=== PATIENT | female | born 1995 | race African-American/Black ===

== ENCOUNTER 2016-11-13 00:33 | Emergency (ER) | payer MEDICAID ==
[~2016-11-13] VITALS: Ht 152.4 cm; Wt 65.9 kg
[2016-11-13 00:36] VITALS: BP 132/65; PULSE 110; RESP 36; TEMP 98.4; O2SAT 98
[2016-11-13] MEDS ORDERED: SODIUM CHLORIDE 0.9% FLUSH 5 ML FLUSH IVF PRN (00:45)
[2016-11-13] MEDS ORDERED: SODIUM CHLOR 0.9% 1000 ML INJ 1,000 ML IV ONE (00:45)
[2016-11-13] MEDS ORDERED: LORazepam 2 MG/ML VIAL IVP ONE (00:45)
--- NOTE | 2016-11-13 01:00 | PD ---
HPI Chief Complaint: Alcohol/Drug Intoxication Time Seen by Provider: 00:45 Travel History International Travel<30 days: No Contact w/Intl Traveler<30days: No Traveled to known affect area: No History of Present Illness HPI 21-year-old female with history of no significant past medical issues, presents to the ER sent in by mom because she is behaving abnormally, mom states that she had taken marijuana and Flacca. She is fairly agitated, and has spastic movements of the arms and legs in the ER. She is awake, alert, and able to answer questions. She states that she took Tylenol and denies taking drugs. She states that she has not been able to sleep and 24 hours. Modifying Factors: None Associated Signs & Symptoms: Possible substance use,flacca, agitated, unable to sleep Risk Factors: None PFSH Past Medical History ADHD: No Autoimmune Disease: No Anxiety: Yes Depression: Yes Cancer: No Cardiovascular Problems: No Developmental Delay: No Diabetes: No Diminished Hearing: No Genitourinary: No Headaches: Yes Musculoskeletal: No Neurologic: No Psychiatric: Yes (ADHD) Respiratory: No Immunizations Current: Yes Migraines: No Seizures: No Thyroid Disease: No Ulcer: No Tetanus Vaccination: Unknown ?: Not LMP: 11/02/2016 : 1 Para: 1 Past Surgical History Appendectomy: No Cholecystectomy: No Other Surgery: No Social History Alcohol Use: Yes Tobacco Use: Yes (1/2 PPD) Substance Use: Yes (mj) Allergies-Medications (Allergen,Severity, Reaction): Coded Allergies: No Known Allergies (Verified , 03/21/16) Reported Meds & Prescriptions Reported Meds & Active Scripts Active No Active Prescriptions or Reported Medications Review of Systems Except as stated in HPI: all other systems reviewed are Neg Physical Exam Narrative GENERAL: Well-nourished, well-developed young -[place] female patient who is agitated in the ER, making intermittent spastic movements of the arms and legs, pressured speech. SKIN: Warm and dry. HEAD: Normocephalic. EYES: No scleral icterus. No injection or drainage. NECK: Supple, trachea midline. CARDIOVASCULAR: Regular rate and rhythm without murmurs, gallops, or rubs. RESPIRATORY: Breath sounds equal bilaterally. No accessory muscle use. GASTROINTESTINAL: Abdomen soft, non-tender, nondistended. MUSCULOSKELETAL: No cyanosis, or edema. BACK: Nontender without obvious deformity. No CVA tenderness. NEUROLOGICAL: Awake and alert. Cranial nerves II through XII intact. Motor and sensory grossly within normal limits. Five out of 5 muscle strength in all muscle groups. Pressured speech. Data Data Last Documented VS Vital Signs Date Time Temp Pulse Resp B/P Pulse Ox O2 Delivery O2 Flow Rate FiO2 11/13/16 05:49 100 20 118/62 99 11/13/16 02:49 Room Air 11/13/16 00:36 98.4 Orders Complete Blood Count With Diff (11/13/16 00:45) Comprehensive Metabolic Panel (11/13/16 00:45) Iv Access Insert/Monitor (11/13/16 00:45) Ecg Monitoring (11/13/16 00:45) Oximetry (11/13/16 00:45) Lorazepam Inj (Ativan Inj) (11/13/16 00:45) Sodium Chloride 0.9% Flush (Ns Flush) (11/13/16 00:45) Sodium Chlor 0.9% 1000 Ml Inj (Ns 1000 M (11/13/16 00:45) Drug Screen, Random Urine (11/13/16 00:45) Alcohol (Ethanol) (11/13/16 00:45) Ed Urine Pregnancytest Poc (11/13/16 00:45) Creatine Kinase (Cpk) (11/13/16 00:55) Ns + Kcl 20 Meq Inj (Ns + Kcl 20 Meq Inj (11/13/16 02:30) Cath For Specimen (11/13/16 03:01) CKMB (11/13/16 00:40) CKMB% (11/13/16 00:40) Labs Laboratory Tests Test 11/13/16 11/13/16 00:40 03:55 White Blood Count 14.4 TH/MM3 Red Blood Count 4.22 MIL/MM3 Hemoglobin 13.9 GM/DL Hematocrit 39.5 % Mean Corpuscular Volume 93.7 FL Mean Corpuscular Hemoglobin 33.0 PG Mean Corpuscular Hemoglobin 35.2 % Concent Red Cell Distribution Width 12.4 % Platelet Count 325 TH/MM3 Mean Platelet Volume 9.0 FL Neutrophils (%) (Auto) 83.4 % Lymphocytes (%) (Auto) 9.0 % Monocytes (%) (Auto) 7.4 % Eosinophils (%) (Auto) 0.0 % Basophils (%) (Auto) 0.2 % Neutrophils # (Auto) 12.0 TH/MM3 Lymphocytes # (Auto) 1.3 TH/MM3 Monocytes # (Auto) 1.1 TH/MM3 Eosinophils # (Auto) 0.0 TH/MM3 Basophils # (Auto) 0.0 TH/MM3 CBC Comment DIFF FINAL Differential Comment Sodium Level 137 MEQ/L Potassium Level 2.8 MEQ/L Chloride Level 101 MEQ/L Carbon Dioxide Level 21.7 MEQ/L Anion Gap 14 MEQ/L Blood Urea Nitrogen 18 MG/DL Creatinine 1.01 MG/DL Estimat Glomerular Filtration 85 ML/MIN Rate Random Glucose 95 MG/DL Calcium Level 8.9 MG/DL Total Bilirubin 0.6 MG/DL Aspartate Amino Transf 26 U/L (AST/SGOT) Alanine Aminotransferase 25 U/L (ALT/SGPT) Alkaline Phosphatase 72 U/L Total Creatine Kinase 312 U/L Creatine Kinase MB 1.5 NG/ML Creatine Kinase MB % 0.5 % Total Protein 9.0 GM/DL Albumin 4.5 GM/DL Ethyl Alcohol Level LESS THAN 3 MG/DL Urine Opiates Screen NEG Urine Barbiturates Screen NEG Urine Amphetamines Screen NEG Urine Benzodiazepines Screen NEG Urine Cocaine Screen NEG Urine Cannabinoids Screen POS MDM Medical Decision Making Medical Screen Exam Complete: Yes Emergency Medical Condition: Yes Medical Record Reviewed: Yes Interpretation(s) Laboratory Tests Test 11/13/16 11/13/16 00:40 03:55 White Blood Count 14.4 TH/MM3 (4.0-11.0) Neutrophils (%) (Auto) 83.4 % (16.0-70.0) Neutrophils # (Auto) 12.0 TH/MM3 (1.8-7.7) Monocytes # (Auto) 1.1 TH/MM3 (0-0.9) Potassium Level 2.8 MEQ/L (3.5-5.1) Creatinine 1.01 MG/DL (0.50-1.00) Estimat Glomerular Filtration 85 ML/MIN (>89) Rate Total Creatine Kinase 312 U/L (26-192) Total Protein 9.0 GM/DL (6.4-8.2) Urine Cannabinoids Screen POS (NEG) Differential Diagnosis Possible drug ingestion, agitation, insomniarule out dehydration versus metabolic issues versus coingestions Narrative Course Urine toxicology screen shows cannabis. Vital signs are stable in the ER. Her potassium is low and IV potassium was given. Patient was given IV fluids. At this point, my plan would be to release her when sober. Diagnosis Primary Impression: OTH PSYCHOACTIVE SUBSTANCE USE, UNSP W INTOX W DELIRIUM Scripts No Active Prescriptions or Reported Meds Condition: Stable Priscilla Cervantes MD Nov 13, 2016 01:00
[2016-11-13 01:12] LABS: BASOPHIL % 0.2 % (0.0-2.0); HEMATOCRIT 39.5 % (35.0-46.0); HEMO FLAGS DIFF FINAL; LYMPHOCYTE # 1.3 TH/MM3 (1.0-4.8); MEAN CELL VOLUME 93.7 FL (80.0-100.0); MEAN CORPUSCULAR HGB CONC 35.2 % (32.0-36.0); MONO % 7.4 % (0.0-8.0); NEUT % 83.4 % (16.0-70.0); PLATELET COUNT 325 TH/MM3 (150-450); RED BLOOD COUNT 4.22 MIL/MM3 (4.00-5.30); RED CELL DISTRIBUTION WIDTH 12.4 % (11.6-17.2); WHITE BLOOD COUNT 14.4 TH/MM3 (4.0-11.0)
[2016-11-13 02:00] LABS: ALKALINE PHOSPHATASE 72 U/L (45-117); ALT (GPT) 25 U/L (9-42); ANION GAP 14 MEQ/L (5-15); AST (GOT) 26 U/L (16-38); BICARBONATE 21.7 MEQ/L (21.0-32.0); BLOOD UREA NITROGEN 18 MG/DL (7-18); CHLORIDE 101 MEQ/L (98-107); GLOMERULAR FILTRATION RATE 85 ML/MIN (>89); SODIUM (NA) 137 MEQ/L (136-145); TOTAL BILIRUBIN ADULT 0.6 MG/DL (0.2-1.0)
[2016-11-13 02:04] LABS: POTASSIUM 2.8 MEQ/L (3.5-5.1)
[2016-11-13] MEDS ORDERED: NS + KCL 20 MEQ INJ 1,000 ML IV ONE (02:30)
[2016-11-13 02:49] VITALS: BP 102/53; PULSE 108; RESP 16; O2SAT 100
[2016-11-13 04:18] LABS: AMPHETAMINE, URINE NEG (NEG); BARBITURATES, URINE NEG (NEG); COCAINE, URINE NEG (NEG)
[2016-11-13 04:59] LABS: CKMB 1.5 NG/ML (0.5-3.6)
[2016-11-13 05:49] VITALS: BP 118/62; PULSE 100; RESP 20; O2SAT 99
[2016-11-13 10:22] VITALS: BP 116/54; PULSE 96; RESP 18; O2SAT 99
== END 2016-11-13 10:55 | disposition home or self-care (01) ==
LOC: NEPA 00:33
DX: F19.921 Other psychoactive substance use, unspecified with intoxication with delirium (principal); F17.200 Nicotine dependence, unspecified, uncomplicated; Z86.59 Personal history of other mental and behavioral disorders
CPT/HCPCS: 80053; 80307; 82550; 82552; 84703; 85025; 96361; 96365; 96366; 96375; 99284; J2060; J3480; J7030; P9612

== ENCOUNTER 2017-09-24 15:17 | Emergency (ER) | payer SELFPAY ==
[~2017-09-24] VITALS: Ht 152.4 cm; Wt 53.6 kg
[2017-09-24 15:19] VITALS: BP 152/50; PULSE 122; RESP 18; TEMP 100.5; O2SAT 98
[2017-09-24 16:18] LABS: BACTERIA, URINE MANY /hpf; BILIRUBIN, URINE NEG (NEG); BLOOD, URINE SMALL (NEG); GLUCOSE,URINE TRACE mg/dL (NEG); KETONE, URINE NEG (NEG); MUCUS URINE FEW /lpf (OCC); NITRITE,URINE NEG (NEG); SQUAMOUS EPITHELIAL CELL URINE 13 /hpf (0-5); URINE COLOR YELLOW (YELLW/STRAW); URINE LEUKOCYTE ESTERASE MOD (NEG)
--- NOTE | 2017-09-24 20:10 | PD ---
Physical Exam Date Seen by Provider: Sep 24, 2017 Time Seen by Provider: 16:49 Narrative 22 year old female presents to the emergency department for evaluation of bilateral ear ringing, nasal congestion, body aches, fevers, and cough for 4 days. Current pain is 8/10. Data Data Last Documented VS Vital Signs Date Time Temp Pulse Resp B/P (MAP) Pulse Ox O2 Delivery O2 Flow Rate FiO2 09/24/17 15:19 100.5 122 18 152/50 (84) 98 Orders Orders Influenzae A/B Antigen (09/24/17 15:30) Urinalysis - C+S If Indicated (09/24/17 15:30) Ed Urine Pregnancytest Poc (09/24/17 15:30) Urine Culture (09/24/17 15:58) Labs Laboratory Tests Test 09/24/17 15:58 Urine Color YELLOW Urine Turbidity HAZY Urine pH 6.0 Urine Specific [place] 1.017 Urine Protein TRACE mg/dL Urine Glucose (UA) TRACE mg/dL Urine Ketones NEG mg/dL Urine Occult Blood SMALL Urine Nitrite NEG Urine Bilirubin NEG Urine Urobilinogen LESS THAN 2.0 MG/DL Urine Leukocyte Esterase MOD Urine RBC 2 /hpf Urine WBC 46 /hpf Urine Squamous Epithelial Cells 13 /hpf Urine Bacteria MANY /hpf Urine Mucus FEW /lpf Microscopic Urinalysis Comment CULTURE INDICATED MDM Supervised Visit with BHAVIK: No Narrative Course 22 year old female presents to the emergency department for evaluation of flu- like symptoms for 4 days. Patient is initially seen in triage and work up is initiated. Patient left AMA before she could be moved to a medical bed. Diagnosis Primary Impression: Left against medical advice Additional Impression: Flu-like symptoms Scripts No Active Prescriptions or Reported Meds Disposition: 07 AGAINST MEDICAL ADVICE Cassandra Jenkins Sep 24, 2017 20:10
== END 2017-09-24 17:12 | disposition left against medical advice (07) ==
LOC: NED 15:17
DX: H92.03 Otalgia, bilateral (principal); R09.81 Nasal congestion; R52 Pain, unspecified; R05 Cough; R50.9 Fever, unspecified; B96.1 Klebsiella pneumoniae [K. pneumoniae] as the cause of diseases classified elsewhere
CPT/HCPCS: 81001; 84703; 87077; 87086; 87186; 99283

== ENCOUNTER 2017-12-07 22:29 | Emergency (ER) | payer SELFPAY ==
[2017-12-08] MEDS ORDERED: IBUP1TAB7 PO (01:38)
[2017-12-08] MEDS ORDERED: AMOX875T PO (01:38)
== END 2017-12-07 23:00 | disposition left against medical advice (07) ==
LOC: NED 22:29
DX: R51 Headache (principal); Z53.21 Procedure and treatment not carried out due to patient leaving prior to being seen by health care provider
CPT/HCPCS: 99281

== ENCOUNTER 2017-12-08 00:30 | Emergency (ER) | payer SELFPAY ==
[~2017-12-08] VITALS: Ht 152.4 cm; Wt 60.0 kg
[2017-12-08 00:33] VITALS: BP 126/67; PULSE 101; RESP 18; TEMP 98.7; O2SAT 100
--- NOTE | 2017-12-08 00:59 | PD ---
HPI Chief Complaint: ENT Complaint Time Seen by Provider: 00:46 Travel History International Travel<30 days: No Contact w/Intl Traveler<30days: No Traveled to known affect area: No History of Present Illness HPI Patient is a 22-year-old female presenting to emergency room for evaluation of sore throat, body aches, subjective fever and chills. She states her symptoms started 1 week ago, they got better after 4 days and then a few days ago returned and were worse. Patient took [place] cold medicine around 7 PM this evening. She denies any nausea, vomiting, abdominal pain, chest pain. She reports feeling short of breath and wheezy, she reports a history of asthma. Symptom onset was gradual, symptoms are moderate severity. No alleviating factors. Symptoms are exacerbated with swallowing. Patient is able to control her secretions. PFSH Past Medical History Asthma: Yes Anxiety: Yes Depression: Yes Headaches: Yes Psychiatric: Yes (ADHD) Immunizations Current: Yes Tetanus Vaccination: Unknown ?: Not LMP: 11/15/2017 : 1 Para: 1 Past Surgical History Appendectomy: No Cholecystectomy: No Other Surgery: No Social History Alcohol Use: Yes Tobacco Use: Yes (09/09 PPD) Substance Use: Yes (mj) Allergies-Medications (Allergen,Severity, Reaction): Coded Allergies: No Known Allergies (Verified Adverse Reaction, Unknown, 12/08/17) Reported Meds & Prescriptions Reported Meds & Active Scripts Active No Active Prescriptions or Reported Medications Review of Systems Except as stated in HPI: all other systems reviewed are Neg General / Constitutional: Positive: Fever, Chills HENT: Positive: Sore Throat Cardiovascular: No: Chest Pain or Discomfort Respiratory: Positive: Shortness of Breath, Wheezing, No: Cough Gastrointestinal: No: Nausea, Vomiting, Abdominal Pain Genitourinary: No: Dysuria Musculoskeletal: No: Myalgias Physical Exam Narrative GENERAL: Well-developed, well-nourished, alert -[place] female. Presenting in no acute distress. SKIN: Warm and dry. HEAD: Atraumatic. Normocephalic. EYES: Pupils equal and round. No scleral icterus. No injection or drainage. ENT: No nasal bleeding or discharge. Mucous membranes pink and moist. 1+ tonsillar hypertrophy bilaterally, erythema mild exudate noted. NECK: Trachea midline. No JVD. CARDIOVASCULAR: Regular rate and rhythm. RESPIRATORY: No accessory muscle use. Clear to auscultation. Breath sounds equal bilaterally. GASTROINTESTINAL: Abdomen soft, non-tender, nondistended. Hepatic and splenic margins not palpable. MUSCULOSKELETAL: Extremities without clubbing, cyanosis, or edema. No obvious deformities. NEUROLOGICAL: Awake and alert. No obvious cranial nerve deficits. Motor grossly within normal limits. Five out of 5 muscle strength in the arms and legs. Normal speech. PSYCHIATRIC: Appropriate mood and affect; insight and judgment normal. Data Data Last Documented VS Vital Signs Date Time Temp Pulse Resp B/P (MAP) Pulse Ox O2 Delivery O2 Flow Rate FiO2 12/08/17 00:33 98.7 101 18 126/67 (86) 100 Orders Orders Group A Rapid Strep Screen (12/08/17 00:51) Influenzae A/B Antigen (12/08/17 00:51) Chest, Single Ap (12/08/17 00:51) Oximetry (12/08/17 00:51) Sodium Chloride 0.9% Flush (Ns Flush) (12/08/17 01:00) Ibuprofen (Motrin) (12/08/17 01:00) Methylprednisolone So Succ Inj (Solumedr (12/08/17 01:00) Iv Access Insert/Monitor (12/08/17 00:51) Albuterol-Ipratropium Neb (Duoneb Neb) (12/08/17 01:00) Strep Culture (Group A) (12/08/17 01:00) MDM Medical Decision Making Medical Screen Exam Complete: Yes Emergency Medical Condition: Yes Interpretation(s) Last Impressions Chest X-Ray 12/08/17 0051 Signed Impressions: Service Date/Time: Friday, December 08, 2017 01:00 - CONCLUSION: No acute disease. Luigi Alvarado MD Vital Signs Date Time Temp Pulse Resp B/P (MAP) Pulse Ox O2 Delivery O2 Flow Rate FiO2 12/08/17 00:33 98.7 101 18 126/67 (86) 100 Differential Diagnosis Strep pharyngitis versus influenza versus viral syndrome versus asthma exacerbation versus other Narrative Course Patient is a 22-year-old female presenting to emerge for evaluation of cold and flulike symptoms. Patient's vital signs are stable. Labs imaging ordered and pending. Patient will be given Solu-Medrol, DuoNeb, ibuprofen. Chest x-ray shows no acute disease. Influenza and strep are negative. Patient will be started on amoxicillin at this time. She is encouraged to complete full course. She is also encouraged to take ibuprofen for pain. She is encouraged to return to emergency department any new or worsening symptoms, she should follow-up with her primary doctor as well. Patient stable for discharge. Patient was given first dose of antibiotics in the emergency department. Diagnosis Primary Impression: Pharyngitis Qualified Codes: J02.9 - Acute pharyngitis, unspecified Referrals: Primary Care Physician Patient Instructions: General Instructions, Pharyngitis (ED) Additional Instructions: Follow-up with your primary doctor Complete full course of antibiotics as prescribed Take ibuprofen as needed and as directed for pain or fever Return to emergency department for any new or worsening symptoms Maintain adequate fluid intake Med/Other Pt SpecificInfo: Prescription(s) given Scripts Amoxicillin (Amoxicillin) 875 Mg Tab 875 MG PO BID for Infection for 10 Days, #20 TAB 0 Refills Prov: Madie Lopez 12/08/17 Ibuprofen (Ibuprofen) 800 Mg Tab 800 MG PO Q6HR Y for PAIN, #40 TAB 0 Refills Prov: Madie Lopez 12/08/17 Disposition: 01 DISCHARGE HOME Condition: Stable Madie Lopez Dec 08, 2017 00:59
[2017-12-08] MEDS ORDERED: SODIUM CHLORIDE 0.9% FLUSH 10 ML FLUSH IVF PRN (01:00)
[2017-12-08] MEDS ORDERED: methylPREDNISolone SOD SUCC 125 MG/2 ML VIAL IV PUSH ONE (01:00)
[2017-12-08] MEDS ORDERED: RESP: ALBUTEROL 2.5 MG/IPRATROPIUM 0.5 MG NEB (SCH) INH ONE (01:00)
[2017-12-08] MEDS ORDERED: IBUPROFEN 800 MG TAB PO ONE (01:00)
--- NOTE | 2017-12-08 01:22 | RADRPT ---
EXAM DATE/TIME: 12/08/2017 01:00 [facility] COMPARISON: No previous studies available for comparison. INDICATIONS : Wheezing. MEDICAL HISTORY : None. SURGICAL HISTORY : None. ENCOUNTER: Initial ACUITY: 1 day PAIN SCORE: 0/10 LOCATION: Bilateral chest FINDINGS: A single view of the chest demonstrates the lungs to be symmetrically aerated without evidence of mas s, infiltrate or effusion. The cardiomediastinal contours are unremarkable. Osseous structures are intact. CONCLUSION: No acute disease. Luigi Alvarado MD on December 08, 2017 at 1:19 Board Certified Radiologist. This report was verified electronically.
[2017-12-08] MEDS ORDERED: IBUP1TAB7 PO (01:38)
[2017-12-08] MEDS ORDERED: AMOX875T PO (01:38)
[2017-12-08] MEDS ORDERED: AMOXICILLIN 875 MG TAB PO ONE (01:45)
== END 2017-12-08 02:06 | disposition home or self-care (01) ==
LOC: NEPD 00:30
DX: J02.9 Acute pharyngitis, unspecified (principal); F17.200 Nicotine dependence, unspecified, uncomplicated
CPT/HCPCS: 71045; 87081; 87804; 87880; 94664; 96374; 99284; J2930

== ENCOUNTER 2018-02-20 01:13 | Emergency (ER) | payer SELFPAY ==
[~2018-02-20] VITALS: Ht 152.4 cm; Wt 60.0 kg
[~2018-02-20 01:13] MED LIST: AMOX875T PO; IBUP1TAB7 PO
[2018-02-20 01:22] VITALS: BP 109/59; PULSE 98; RESP 16; TEMP 98.9; O2SAT 98
[2018-02-20 02:18] LABS: BACTERIA, URINE RARE /hpf; BILIRUBIN, URINE NEG (NEG); BLOOD, URINE SMALL (NEG); GLUCOSE,URINE NEG (NEG); KETONE, URINE 20 mg/dL (NEG); MUCUS URINE FEW /lpf (OCC); NITRITE,URINE NEG (NEG); SQUAMOUS EPITHELIAL CELL URINE 4 /hpf (0-5); URINE COLOR YELLOW (YELLW/STRAW); URINE LEUKOCYTE ESTERASE MOD (NEG)
[2018-02-20] MEDS ORDERED: ceFAZolin 2 GM PREMIX 50 ML IV ONE (04:30)
[2018-02-20] MEDS ORDERED: ONDANSETRON ODT 4 MG TAB PO ONE (05:00)
--- NOTE | 2018-02-20 05:20 | PD ---
HPI Chief Complaint: Abdominal Pain Time Seen by Provider: 01:53 Travel History International Travel<30 days: No Contact w/Intl Traveler<30days: No Traveled to known affect area: No History of Present Illness HPI Patient reports nausea all day decreased urine output suprapubic abdominal pain. She did not take any medications to alleviate her symptoms she has not seen another doctor for this. She had a urine infection in the past but at that time she had burning and increased frequency now she is coming in mainly for the nausea and the abdominal pain mild constipation no diarrhea no fever no vomit + naesea abdo pain PFSH Past Medical History ADHD: Yes Asthma: Yes Anxiety: Yes Depression: Yes Diminished Hearing: No Headaches: Yes Psychiatric: Yes (ADHD) Immunizations Current: Yes Tetanus Vaccination: Unknown Influenza Vaccination: No ?: Not LMP: 1-2WKS AGO : 1 Para: 1 Past Surgical History Appendectomy: No Cholecystectomy: No Other Surgery: No Social History Alcohol Use: Yes Tobacco Use: Yes (09/09 PPD) Substance Use: Yes (mj) Allergies-Medications (Allergen,Severity, Reaction): Coded Allergies: No Known Allergies (Verified Adverse Reaction, Unknown, 02/20/18) Reported Meds & Prescriptions Reported Meds & Active Scripts Active Zofran Odt (Ondansetron Odt) 4 Mg Tab 4 Mg SL Q8HR PRN Keflex (Cephalexin) 500 Mg Cap 500 Mg PO Q8H Physical Exam Narrative GENERAL: SKIN: Warm and dry. HEAD: Atraumatic. Normocephalic. EYES: Pupils equal and round. No scleral icterus. No injection or drainage. ENT: No nasal bleeding or discharge. Mucous membranes pink and moist. NECK: Trachea midline. No JVD. CARDIOVASCULAR: Regular rate and rhythm. RESPIRATORY: No accessory muscle use. Clear to auscultation. Breath sounds equal bilaterally. GASTROINTESTINAL: Abdomen +periumbilical pain MUSCULOSKELETAL: Extremities without clubbing, cyanosis, or edema. No obvious deformities. NEUROLOGICAL: Awake and alert. No obvious cranial nerve deficits. Motor grossly within normal limits. Five out of 5 muscle strength in the arms and legs. Normal speech. PSYCHIATRIC: Appropriate mood and affect; insight and judgment normal. Data Data Last Documented VS Vital Signs Date Time Temp Pulse Resp B/P (MAP) Pulse Ox O2 Delivery O2 Flow Rate FiO2 6/15/18 01:22 98.9 98 16 109/59 (76) 98 Orders Orders Urinalysis - C+S If Indicated (02/20/18 01:53) Urine Culture (02/20/18 02:00) Cefazolin 2 Gm Premix (Ancef 2 Gm Premix (02/20/18 04:30) Ondansetron Odt (Zofran Odt) (02/20/18 05:00) Ed Discharge Order (02/20/18 05:36) Labs Laboratory Tests Test 02/20/18 02:00 Urine Color YELLOW Urine Turbidity CLEAR Urine pH 5.0 Urine Specific [place] 1.027 Urine Protein NEG mg/dL Urine Glucose (UA) NEG mg/dL Urine Ketones 20 mg/dL Urine Occult Blood SMALL Urine Nitrite NEG Urine Bilirubin NEG Urine Leukocyte Esterase MOD Urine RBC 6 /hpf Urine WBC 12 /hpf Urine Squamous Epithelial Cells 4 /hpf Urine Bacteria RARE /hpf Urine Mucus FEW /lpf Microscopic Urinalysis Comment CULTURE INDICATED MDM Medical Decision Making Medical Screen Exam Complete: Yes Emergency Medical Condition: Yes Differential Diagnosis dysuria of UTI or cystitis vs renal involvement possible renal stone or pyelonephritis other Narrative Course urine infected Ancef IV and toradol and discharged home keflex and zofran Diagnosis Primary Impression: UTI (urinary tract infection) Qualified Codes: N30.00 - Acute cystitis without hematuria Scripts Ondansetron Odt (Zofran Odt) 4 Mg Tab 4 MG SL Q8HR Y for Nausea/Vomiting, #12 TAB 0 Refills Prov: Marty Aguilar MD 02/20/18 Cephalexin (Keflex) 500 Mg Cap 500 MG PO Q8H for Infection, #21 CAP 0 Refills Prov: Marty Aguilar MD 02/20/18 Disposition: 01 DISCHARGE HOME Condition: Good Marty Aguilar MD Feb 20, 2018 05:20
[2018-02-20] MEDS ORDERED: CEPH-460 PO (05:23)
[2018-02-20] MEDS ORDERED: ZOFR4TAB3 SL (05:24)
== END 2018-02-20 05:51 | disposition home or self-care (01) ==
LOC: NEPE 01:13
DX: N30.00 Acute cystitis without hematuria (principal); F17.200 Nicotine dependence, unspecified, uncomplicated
CPT/HCPCS: 81001; 87086; 96365; 99284; J0690